=== PATIENT | male | born 1995 | race Hispanic/Latino ===

== ENCOUNTER 2017-05-17 18:30 | Emergency (ER) | payer OTHER ==
[2017-05-17] MEDS: CORTISPORIN OTIC SOLN 10 ML BTL AD (19:45)
== END 2017-05-17 20:00 | disposition home or self-care (01) ==
LOC: M ED 18:30
DX: H60.91 Unspecified otitis externa, right ear (principal)
CPT/HCPCS: 99283

== ENCOUNTER 2018-01-20 22:51 | Emergency (ER) | payer OTHER ==
[2018-01-21] MEDS: ACETAMINOPHEN 325 MG TAB PO (00:07)
[2018-01-21 00:44] LABS: INFLUENZA A AMPLIFICATION NEGATIVE (NEGATIVE); INFLUENZA B AMPLIFICATION NEGATIVE (NEGATIVE)
== END 2018-01-21 01:13 | disposition home or self-care (01) ==
LOC: M ED 01-21 01:13
DX: J06.9 Acute upper respiratory infection, unspecified (principal)
CPT/HCPCS: 87502

== ENCOUNTER → 2020-05-24 | Outpatient (CLI) | payer SELFPAY ==
[~2020-05-24] MED LIST: AMOX500C PO; BENZ200C70 PO; IBUP-1022 PO; MUCI600T37 PO; PYRI1TAB5 PO
== END ==
LOC: M LABSMTC 09:48
PROVIDERS: ATTEND Pediatrics
DX: Z20.822 Contact with and (suspected) exposure to COVID-19 (principal)